=== PATIENT | female | born 1950 | race African-American/Black ===

== ENCOUNTER 2022-03-12 09:12 | Emergency (ER) | payer OTHER, MEDICARE ==
[2022-03-12] MEDS ORDERED: Lidocaine 1% PF 5 ML VIAL ONE (11:23)
[2022-03-12] MEDS ORDERED: Acetaminophen 500 MG TAB ONE (13:04)
== END 2022-03-12 13:09 | disposition home or self-care (01) ==
LOC: ERS 09:12
DX: S91.114A Laceration without foreign body of right lesser toe(s) without damage to nail, initial encounter (principal); E11.9 Type 2 diabetes mellitus without complications; E78.5 Hyperlipidemia, unspecified; I10 Essential (primary) hypertension; Z79.82 Long term (current) use of aspirin; Z79.899 Other long term (current) drug therapy; W01.0XXA Fall on same level from slipping, tripping and stumbling without subsequent striking against object, initial encounter
CPT/HCPCS: 12001

== ENCOUNTER 2023-02-10 10:08 | Outpatient (CLI) | payer MEDICARE | END 2023-02-10 10:09 | disposition home or self-care (01) | LOC: MRI 10:08 | PROVIDERS: ATTEND Surgery | DX: D32.9 Benign neoplasm of meninges, unspecified (principal) | CPT/HCPCS: 70551 ==